=== PATIENT | female | born 1960 | race African-American/Black ===

== ENCOUNTER → 2018-02-22 | Day surgery (SDC) | payer OTHER ==
[2018-02-19 09:14] LABS: Basophils # (auto) 0 uL; Basophils % (auto) 0.8 % (0.0-2.0); Eosinophils # (auto) 0.2 uL; Eosinophils % (auto) 4.3 % (0.0-7.0); Hematocrit 39.8 % (36.0-46.0); Hemoglobin 13.5 g/dL (12.2-16.2); Lymphocytes # (auto) 1.5 uL; Lymphocytes % (auto) 32.9 % (10.0-50.0); Mean Corpuscular Hemoglobin 31.3 pg (28.0-32.0); Mean Corpuscular Hgb Conc. 33.9 g/dL (32.0-36.0); Mean Corpuscular Volume 92.5 fL (80.0-100.0); Monocytes # (auto) 0.3 uL; Monocytes % (auto) 7.4 % (0.0-12.0); Neutrophils # (auto) 2.6 uL; Neutrophils % (auto) 54.6 % (37.0-80.0); Platelet Count (auto) 231 10^3/uL (140-450); Red Blood Cells 4.31 10^6/uL (4.0-5.20); Red Cell Distribution Width 13.4 % (11.8-14.3); White Blood Cell 4.7 10^3/uL (4.4-10.8)
[2018-02-19 09:35] LABS: INR 0.91 (0.9-1.15); Partial Thromboplastin Time 27.9 sec (23.78-33.04); Prothrombin Time 9.8 sec (9.27-12.13)
[~2018-02-22] VITALS: Ht 170.2 cm; Wt 83.0 kg
[~2018-02-22] MED LIST: ALBUAER3 IN; ASCO500T11 PO; CHOL20007 PO; LIDOCAINE VISCOUS 2% 15ML UD ONE; METF-372 PO; MULT-690 PO; MULT-923 PO; NAP500T PO; PANT40TA2 PO; SIMV10TA84 PO; SODIUM CHLORIDE LOCK 10 ML ONE; diphenhdrAMINE HCL 50 MG/1 ML VL ONE
[2018-02-22] MEDS: fentaNYL CITRATE 100 MCG/2 ML VL ONE ×3 (11:10→11:24)
[2018-02-22] MEDS: MIDAZOLAM HCL 5 MG/ML-1ML VIAL ONE ×3 (11:10→11:24)
[2018-02-22 12:02] VITALS: BP 123/76
== END | disposition home or self-care (01) ==
LOC: GI 09:21
PROVIDERS: ATTEND Internal Medicine Gastroenterology
DX: Z12.11 Encounter for screening for malignant neoplasm of colon (principal); K29.50 Unspecified chronic gastritis without bleeding; J44.9 Chronic obstructive pulmonary disease, unspecified; K21.9 Gastro-esophageal reflux disease without esophagitis; J45.909 Unspecified asthma, uncomplicated; E11.9 Type 2 diabetes mellitus without complications; Z88.1 Allergy status to other antibiotic agents; Z88.2 Allergy status to sulfonamides; Z90.49 Acquired absence of other specified parts of digestive tract; Z90.710 Acquired absence of both cervix and uterus; Z98.890 Other specified postprocedural states; Z79.84 Long term (current) use of oral hypoglycemic drugs; Z79.2 Long term (current) use of antibiotics; Z79.899 Other long term (current) drug therapy
CPT/HCPCS: 36415; 43239; 45378; 82962; 85025; 85610; 85730; A6257; J1200; J2250; J3010; J7030; 99152; 99153